=== PATIENT | female | born 1995 | race Caucasian/White ===

== ENCOUNTER 2023-03-06 13:44 | Emergency (ER) | payer OTHER, SELFPAY ==
[2023-03-06 14:13] VITALS: BP 140/78; PULSE 103; RESP 18; TEMP 36.3; O2SAT 97; BMI 25.4
--- NOTE | 2023-03-06 14:15 | ED.GENADULT ---
HPI - General Adult General Chief complaint: Wound/Laceration Stated complaint: Thumb wound Time Seen by Provider: 03/06/23 18:14 Source: patient, RN notes reviewed and old records reviewed Mode of arrival: ambulatory Limitations: no limitations History of Present Illness HPI narrative: 27-year-old female presents for evaluation of an infection to her right thumb. Patient reports that she developed an infection on February 17, 17 days ago she states that she was in a treatment program at the time and was unable to get to the hospital until last Monday, 6 days ago. she states that 2 days ago on Monday they cut it open and put a packing inside of it. She has not been able take any oral antibiotics due to insurance issues denies any fevers and she reports that her symptoms have significantly improved the patient is also requesting referral to Infectious Disease because they told me I tested positive for HIV. Related Data Previous Rx's Medication Instructions Recorded doxycycline hyclate 100 mg tablet 100 mg PO BID #20 tabs 03/06/23 Allergies Allergy/AdvReac Type Severity Reaction Status Date / Time No Known Allergies Allergy Verified 03/06/23 14:16 Review of Systems Constitutional: Constitutional: Denies chills and Denies fever(s) Cardiovascular: Cardiovascular: Denies chest pain and Denies dyspnea Respiratory: Respiratory: Denies dyspnea Integumentary/Breasts: Skin/Breast: Reports wounds PMFSH Social History Social History Advance Directives: No Advance Directives Information Provided: No Physical Exam ED Vital Signs: Vital Signs - 24 hr 03/06/23 14:13 03/06/23 18:26 Temperature 97.3 F 97.7 F Pulse Rate 103 H 86 Respiratory Rate 18 16 Blood Pressure 140/78 H 126/78 Pulse Oximetry 97 98 Oxygen Delivery Method Room Air Room Air BMI result Body Mass Index 25.4 Const General: healthy appearing, comfortable, no acute distress, alert and awake Nutritional Appearance: well nourished Orientation/consciousness: patient oriented x3 HENMT Head: Yes normocephalic and Yes atraumatic Eyes Eyelids: Yes eyelids normal Conjunctivae: conjunctivae normal Sclerae: sclerae normal Corneas: corneas normal Pupils: Equal, round and reactive pupils present EOM: EOMs intact bilaterally Neck Neck: Yes full ROM Resp Effort & Inspection: normal respiratory effort, able to speak in complete sentences and not labored Skin Other: Patient has a 1 cm open wound to the radial aspect of the right thumb. There is minimal surrounding erythema, no active drainage. I removed the iodoform gauze packing. There was no significant edema to the right thumb. General skin exam: elasticity normal Neuro General: patient oriented x3 Cranial nerves: Yes Equal, round and reactive pupils present and Yes Bilaterally intact EOM present Cognition (Neuro): normal cognition Extrem Other: Moving all extremities well without any obvious deformities Course Course Course Narrative: This is an RME: Additional HPI, ROS, PE not included below will be deferred to primary provider. This is a 78-[id number]-female, hx of hepatitis c, IVDA, and asthma, presenting to the emergency department with a complaint of right hand wound check. She was seen at [facility] in [place] where she had an I&D drained. She could not fill the abx. She states that she was admitted there for several days. She states that she had no wound care follow-up and is unsure what to do as she now is requesting to have the wick removed. Original bandage placed on hand. No surrounding redness identified beyond the dressing. Did not take off dressing. Will need further workup, will get basic labs further ER evaluation needed Plan: Labs, requested [facility] records Medical Decision Making Medical Decision Making [facility] Narrative: 27-year-old female presents for evaluation of a wound evaluation of the right thumb. She had an incision and drainage at outside facility 3 days ago per her report. She states that she was at [facility]. I removed the gauze wick packing. There appears to be significant improvement in her symptoms. There is no significant erythema or drainage from the wound. She will be prescribed doxycycline and will be given infectious disease follow-up per her request. The patient declined labs and given that she is not septic appearing I feel this is appropriate. patient's wound was redressed in she was given additional wound dressing material. Differential Diagnosis Differential Diagnoses: The differential diagnosis associated with the presentation includes Wound check Cellulitis Paronychia Abscess osteomyelitis Lab Data [facility] Lab Attestation statement: I reviewed the patient's lab results. ( patient declined labs) Discharge Plan Discharge Clinical Impression: Abscess Patient Disposition: Home, Self-Care Instructions: Abscess (ED) Additional Instructions: Take the doxycycline twice daily for the next 10 days. follow-up with infectious disease return for new or worsening symptoms Prescriptions: New doxycycline hyclate 100 mg tablet 100 mg PO BID Qty: 20 0RF
--- NOTE | 2023-03-06 18:17 | MHC.EDTECH ---
This pct just assumed care of Pt ,Pt refused lab draw ,KADEEM Lao aware .
[2023-03-06 18:26] VITALS: BP 126/78; PULSE 86; RESP 16; TEMP 36.5; O2SAT 98
--- NOTE | 2023-03-06 18:37 | MHC.EDTECH ---
Pt lac on right thumb was soaked and clean with saline and betidine ,and non stick dressing apply .
[2023-03-06] MEDS: Ibuprofen 800 MG TABLET PO (19:04)
[2023-03-06] MEDS: Doxycycline Monohydrate 100 MG CAPSULE PO (19:04)
[2023-03-06] MEDS: Loratadine 10 MG TABLET PO (19:04)
== END 2023-03-06 19:12 | disposition home or self-care (01) ==
PROVIDERS: Emergency Provider Emergency Medicine
DX: L02.511 Cutaneous abscess of right hand (principal); Z48.00 Encounter for change or removal of nonsurgical wound dressing
CPT/HCPCS: 99283

== ENCOUNTER 2023-03-10 15:09 | Outpatient (AMB) | payer OTHER, SELFPAY ==
--- NOTE | 2023-03-10 15:09 | A.OFFVIS_ITS ---
Intake Vital Signs 03/10/23 15:20 Height 5 ft 5 in Pulse 109 H Pulse Oximetry (%) 97 Intake Visit Reasons: ref. depert[facility] of public [facility],HIV Allergies No Known Allergies Allergy (Verified 03/10/23 15:12) [facility] HPI Details I have positive HIV test on her from [facility]. She is aware. She also has positive Hepatitis C viral load. [facility] Medical History HIV (human immunodeficiency virus infection) Review of Systems Const All systems reviewed & are unremarkable except as noted in HPI and below Physical Exam Vital Signs: Last Vital Signs Pulse 109 H 03/10/23 15:20 Pulse Ox 97 03/10/23 15:20 Const General: cooperative Orientation/consciousness: patient oriented x3 HEENT Head: Yes normal to inspection Mouth: Normal oral and palatal mucosa present Eyes General: appearance normal, both eyes and all related structures Pupils: Equal, round and reactive pupils present Resp Effort & Inspection: normal respiratory effort Cardio Rate: regular rate Rhythm: regular rhythm GI Palpation (GI): Soft to palpation and nontender General: Yes no CVA tenderness Back/Spine/Pelvis Back: no CVA tenderness Skin General skin exam: no rashes or lesions noted Neuro General: patient oriented x3 Cranial nerves: Yes CN's II-XII intact bilaterally and Yes Equal, round and reactive pupils present Extrem General: Yes normal to inspection Psych Appearance: grossly normal Assessment & Plan Assessment & Plan (1) HIV (human immunodeficiency virus infection): Comment: She has no opportunistic infections. She needs to do labs immediately and probably start Biktarvy. She needs to be on control if not. Interview was short as patient anxious to leave and kept wrapping and unwrapping bandage on thumb. See back after labs. She needs to start meds cinda as risk to others as homeless and multiple partners. Code(s): B20 - Human immunodeficiency virus [HIV] disease Orders: Orders Complete Blood Count Auto Diff 03/10/23 B20 - Human immunodeficiency virus [HIV] disease Basic Metabolic Panel 03/10/23 B20 - Human immunodeficiency virus [HIV] disease Liver Panel 03/10/23 B20 - Human immunodeficiency virus [HIV] disease Hepatitis B Surface Antigen 03/10/23 B20 - Human immunodeficiency virus [HIV] disease Hepatitis C Antibody 03/10/23 B20 - Human immunodeficiency virus [HIV] disease Hepatitis C Viral Load 03/10/23 B20 - Human immunodeficiency virus [HIV] disease Liver Fibrosis Pnl 03/10/23 B20 - Human immunodeficiency virus [HIV] disease Prothrombin Time INR 03/10/23 B20 - Human immunodeficiency virus [HIV] disease T Spot TB 03/10/23 B20 - Human immunodeficiency virus [HIV] disease Toxoplasma Ab IgG & IgM 03/10/23 B20 - Human immunodeficiency virus [HIV] disease Lymphocyte Subset Panel 3 03/10/23 B20 - Human immunodeficiency virus [HIV] disease HIV-1 RNA QN PCR Expanded 03/10/23 B20 - Human immunodeficiency virus [HIV] disease HIV-1 Integrase Genotype 03/10/23 B20 - Human immunodeficiency virus [HIV] disease HIV Genotype 03/10/23 B20 - Human immunodeficiency virus [HIV] disease HCG Quantitative 03/10/23 B20 - Human immunodeficiency virus [HIV] disease Hepatitis B Core Antibody 03/10/23 B20 - Human immunodeficiency virus [HIV] disease Hepatitis B Surface Antibody 03/10/23 B20 - Human immunodeficiency virus [HIV] disease Hepatitis A IgG 03/10/23 B20 - Human immunodeficiency virus [HIV] disease Syphilis Screen 03/10/23 B20 - Human immunodeficiency virus [HIV] disease CMV DNA PCR Qn 03/10/23 B20 - Human immunodeficiency virus [HIV] disease Cryptococcal Ag Serum 03/10/23 B20 - Human immunodeficiency virus [HIV] disease Coding Level of Care Code New Pt Level 3 (77377) Diagnoses HIV (human immunodeficiency virus infection) B20
[2023-03-10 15:20] VITALS: PULSE 109; O2SAT 97
== END 2023-03-10 15:37 | disposition home or self-care (01) ==
PROVIDERS: Visit Provider Internal Medicine
DX: B20 Human immunodeficiency virus [HIV] disease (principal)
CPT/HCPCS: 99203

== ENCOUNTER → 2023-03-10 15:09 | Outpatient (BNVA) | payer OTHER, SELFPAY | PROVIDERS: Visit Provider Internal Medicine | DX: B20 Human immunodeficiency virus [HIV] disease (principal) | CPT/HCPCS: 99202 ==